=== PATIENT | female | born 1950 | race Caucasian/White ===

== ENCOUNTER 2022-11-25 07:52 | Day surgery (SDC) | payer MEDICARE, BC ==
[2022-11-25] VITALS (10 sets, daily range): BP systolic 97–147; BP diastolic 43–66; PULSE 65–80; RESP 12–20; TEMP 97.4; O2SAT 95–100
[~2022-11-25] VITALS: Ht 162.6 cm; Wt 81.9 kg
[~2022-11-25 07:52] MED LIST: CARV-50 PO; CEPH-585 PO; CYCL-1 PO; DULA1.5P SQ; DULO-31 PO; GABA-532 PO; HYDR-3972 PO; HYDR12.55 PO; LEVO88TA2 PO; PILO5TAB10 PO
[2022-11-25] MEDS ORDERED: LOSA50TA64 PO (08:28)
[2022-11-25] MEDS ORDERED: ROSU5TAB12 PO (08:28)
[2022-11-25] MEDS ORDERED: ZOLP5TAB8 PO (08:31)
[2022-11-25] MEDS ORDERED: normal saline 1,000 ML IV SCH (09:00)
[2022-11-25] MEDS ORDERED: diphenhydrAMINE 25mg capsule PO PRN (09:00)
[2022-11-25] MEDS ORDERED: sodium bicarbonate 1meq/ml syr 150 ML in dextrose 5%-water 1,000 ML IV SCH (09:10)
[2022-11-25 09:14] LABS: BASOPHILS % (AUTO) 0.3 % (0-1); EOSINOPHILS # (AUTO) 0.2 X10'3 (0-0.9); EOSINOPHILS % (AUTO) 3.4 % (0-6); HEMOGLOBIN 13.2 g/dl (12.0-16.0); LYMPHOCYTES # (AUTO) 2.1 X10'3 (1.1-4.8); LYMPHOCYTES % (AUTO) 41.8 % (21-51); MEAN CORPUSCULAR HEMOGLOBIN 33.5 PG (27.0-31.0); MEAN CORPUSCULAR HGB CONC 34.8 g/dL (33.0-36.5); MEAN CORPUSCULAR VOLUME 96.4 FL (78-98); MEAN PLATELET VOLUME 8.4 FL (7.4-10.4); MONOCYTES # (AUTO) 0.5 X10'3 (0-0.9); MONOCYTES % (AUTO) 9.1 % (2-12); NEUTROPHILS # (AUTO) 2.3 X10'3 (1.8-7.7); NEUTROPHILS % (AUTO) 45.4 % (42-75); PLATELET COUNT 158 X10'3 (140-440); RED BLOOD COUNT 3.94 X10'6 (4.20-5.60); RED CELL DISTRIBUTION WIDTH 12.7 % (11.5-14.5); WHITE BLOOD COUNT 5.1 X10'3 (4.5-11.0)
[2022-11-25 09:25] LABS: INR 1.1 INR; PROTHROMBIN TIME 11.6 SECONDS (9.0-12.0)
[2022-11-25 09:26] LABS: ALBUMIN 3.6 G/DL (3.4-5.0); ANION GAP 9 (8-16); BLOOD UREA NITROGEN 29 MG/DL (7-18); CALCIUM 9.5 MG/DL (8.5-10.1); CHLORIDE 104 MMOL/L (99-107); CREATININE 1.21 MG/DL (0.40-0.90); GLUCOSE 131 MG/DL (70-104); MAGNESIUM 1.9 MG/DL (1.5-2.4); POTASSIUM 3.7 MMOL/L (3.5-5.1); SODIUM 140 MMOL/L (135-145); TOTAL CARBON DIOXIDE 26.9 MMOL/L (24-32); eCRCL 35 ML/MIN; eGFR 43 ML/MIN
[2022-11-25] MEDS ORDERED: LIDOcaine 1% (10mg/ml) 2ml vial ONE (10:45)
[2022-11-25] MEDS ORDERED: nitroGLYCERIN-Tridil 50MG/D5W 250 ML IV ONE (10:45)
[2022-11-25] MEDS ORDERED: midazolam 1 mg/ML 2ml injection ONE ×3 (10:45→11:29)
[2022-11-25] MEDS ORDERED: verapamil 2.5 mg/ml inj IV ONE (10:45)
[2022-11-25] MEDS ORDERED: heparin 1,000unit/ml 10ml vial 10 ML ONE (10:46)
[2022-11-25] MEDS ORDERED: iohexol 350MG/ML 100ml bottle IV ONE (10:46)
[2022-11-25] MEDS ORDERED: fentaNYL/PF 50MCG/1 ML 2ML syringe ONE (10:46)
[2022-11-25] MEDS ORDERED: iohexol 350 MG/ML 50ML vial IV ONE (10:51)
[2022-11-25] MEDS ORDERED: proCHLORperazine 10 MG/2 ml inj ONE (11:18)
[2022-11-25] MEDS ORDERED: diphenhydrAMINE 50 mg/ml inj ONE (11:29)
[2022-11-25] MEDS ORDERED: normal saline 1000ml 1,000 ML IV SCH (12:15)
[2022-11-25] MEDS ORDERED: HYDROcodone/acetaminophen 5mg/325mg tablet PO PRN (12:15)
[2022-11-25] MEDS ORDERED: proCHLORperazine 10 MG/2 ml inj IV PRN (12:15)
[2022-11-25] MEDS ORDERED: HYDROcodone/acetaminophen 10/325mg tab PO PRN (12:15)
[2022-11-25] MEDS ORDERED: ondansetron/PF 4mg/2ml inj IV PRN (12:15)
== END 2022-11-25 15:30 | disposition home or self-care (01) ==
LOC: SSTAY O 07:52
PROVIDERS: ATTEND Internal Medicine Cardiovascular Disease
DX: I42.0 Dilated cardiomyopathy (principal); I25.10 Atherosclerotic heart disease of native coronary artery without angina pectoris; I47.20 Ventricular tachycardia, unspecified; E03.9 Hypothyroidism, unspecified; I10 Essential (primary) hypertension; E78.5 Hyperlipidemia, unspecified; J44.9 Chronic obstructive pulmonary disease, unspecified; E11.9 Type 2 diabetes mellitus without complications; M35.00 Sjogren syndrome, unspecified; Z79.899 Other long term (current) drug therapy; Z90.710 Acquired absence of both cervix and uterus; Z98.890 Other specified postprocedural states; Z88.8 Allergy status to other drugs, medicaments and biological substances; Z82.49 Family history of ischemic heart disease and other diseases of the circulatory system
CPT/HCPCS: 36415; 80048; 83735; 85025; 85610; 93005; 93458; 99152; A6258; J0780; J1644; J2250; J3010; J3490; J7030; Q0163; Q9967; 99153; A6402; C1894; J1200

== ENCOUNTER 2024-04-11 05:50 | Day surgery (SDC) | payer MEDICARE, BC ==
[2024-04-08 15:27] LABS: BASOPHILS % (AUTO) 0.4 % (0-1); EOSINOPHILS # (AUTO) 0.2 X10'3 (0-0.9); EOSINOPHILS % (AUTO) 3.6 % (0-6); LYMPHOCYTES # (AUTO) 2.2 X10'3 (1.1-4.8); LYMPHOCYTES % (AUTO) 45.9 % (21-51); MEAN CORPUSCULAR HEMOGLOBIN 33.8 PG (27.0-31.0); MEAN CORPUSCULAR HGB CONC 34.5 g/dL (33.0-36.5); MEAN CORPUSCULAR VOLUME 97.9 FL (78-98); MEAN PLATELET VOLUME 8.1 FL (7.4-10.4); MONOCYTES # (AUTO) 0.4 X10'3 (0-0.9); MONOCYTES % (AUTO) 8.3 % (2-12); NEUTROPHILS % (AUTO) 41.8 % (42-75); PRE OP HEMATOCRIT 35.4 % (35.0-45.0); PRE OP HEMOGLOBIN 12.2 g/dL (12.0-16.0); PRE OP PLATELET COUNT 165 X10'3 (140-440); PRE OP WHITE BLOOD COUNT 4.9 10'3 (4.8-10.8); RED BLOOD COUNT 3.62 X10'6 (4.20-5.60); RED CELL DISTRIBUTION WIDTH 12.4 % (11.5-14.5)
[2024-04-08 15:31] LABS: BILIRUBIN,URINE NEGATIVE (Neg); CLARITY,URINE SLIGHTLY CLOUDY (Clear); COLOR,URINE YELLOW (Yellow); GLUCOSE, URINE NEGATIVE (Neg); KETONES,URINE NEGATIVE (Neg); LEUKOCYTE ESTERASE ,URINE NEGATIVE (Neg); NITRITES, URINE NEGATIVE (Neg); OCCULT BLOOD,URINE NEGATIVE (Neg); PROTEIN,URINE NEGATIVE (Neg)
[2024-04-08 15:36] LABS: UA COLLECTION TYPE NON-SPECIFIED
[2024-04-08 15:44] LABS: BACTERIA,URINE FEW /HPF (Neg); MUCUS STRANDS NONE SEEN /LPF (Neg); RBC,URINE 0-2 /HPF (0-2); RENAL CELLS, URINE FEW /HPF; SQUAMOUS EPITHELIAL CELL,UR MANY /LPF (FEW); TRANSITIONAL EPI CELLS,URINE FEW /HPF; WBC,URINE 0-4 /HPF (0-4)
[2024-04-08 15:48] LABS: ALBUMIN 3.5 G/DL (3.4-5.0); ALBUMIN/GLOBULIN RATIO 1.1 (1.1-1.5); ALKALINE PHOSPHATASE 83 IU/L (46-116); BLOOD UREA NITROGEN 28 MG/DL (7-18); BUN/CREATININE RATIO 23.1 (10.0-20.0); CALCIUM 9.2 MG/DL (8.5-10.1); CHLORIDE 106 MMOL/L (99-107); CREATININE 1.21 MG/DL (0.40-0.90); PRE OP ALT 18 U/L (30-65); PRE OP ANION GAP 8 (8-16); PRE OP AST 11 U/L (10-37); PRE OP BILIRUB, TOTAL 0.5 MG/DL (0.0-1.0); PRE OP GLUCOSE 65 MG/DL (70-104); PRE OP POTASSIUM 3.9 MMOL/L (3.4-5.1); PRE OP SODIUM 143 MMOL/L (135-145); TOTAL CARBON DIOXIDE 29.3 MMOL/L (24-32); TOTAL PROTEIN 6.6 G/DL (6.4-8.2); eGFR 43 ML/MIN
[~2024-04-11] VITALS: Ht 162.6 cm; Wt 75.0 kg
[2024-04-11] VITALS (7 sets, daily range): BP systolic 127–146; BP diastolic 52–86; PULSE 71–85; RESP 12–16; TEMP 96.5; O2SAT 96–100
[2024-04-11] MEDS: DOCUMENT DATE & TIME OF BETA-BLOCKER PO ONE (05:30)
[2024-04-11] MEDS: ceFAZolin 2gm in dextrose, iso 50 ML IV ONE (05:30)
[~2024-04-11 05:50] MED LIST changes: -CEPH-585 PO; -CYCL-1 PO; -HYDR-3972 PO; +HYDR-3973 PO; +LANS15CA18 PO; -PILO5TAB10 PO; +ROSU5TAB51 PO
[2024-04-11] MEDS: famotidine 20mg tablet PO ONE (06:39)
[2024-04-11] MEDS ORDERED: bacitracin 15gm ointment TP ONE (06:57)
[2024-04-11] MEDS: ringers solution, lacted 1,000 ML IV SCH (06:58)
[2024-04-11] MEDS ORDERED: sevoflurane 250ml liquid IH ONE (07:07)
[2024-04-11] MEDS ORDERED: midazolam 1 mg/ML 2ml injection ONE (07:17)
[2024-04-11] MEDS ORDERED: fentaNYL/PF 50MCG/1 ML 2ML syringe ONE (07:17)
[2024-04-11] MEDS ORDERED: ROPIVAcaine 0.5% (5mg/ml) 30ml vial ONE (07:18)
[2024-04-11] MEDS ORDERED: rocuronium 10mg/ml inj IV ONE (07:42)
[2024-04-11] MEDS ORDERED: BUPIVAcaine/PF 7.5mg/ml (0.75%) 10ml vial ONE ×2 (07:43)
[2024-04-11] MEDS ORDERED: propofol inj 20 ML IV ONE (07:43)
[2024-04-11] MEDS ORDERED: LIDOcaine 2% (20mg/ml) 5ml vial ONE (07:43)
[2024-04-11] MEDS ORDERED: enalaprilat dihydrate 2.5mg/2ml vial IV PRN (08:20)
[2024-04-11] MEDS ORDERED: proCHLORperazine 10 MG/2 ml inj IV PRN (08:20)
[2024-04-11] MEDS ORDERED: ringers solution, lacted 1,000 ML IV SCH (08:20)
[2024-04-11] MEDS ORDERED: ondansetron/PF 4mg/2ml inj IV PRN (08:20)
[2024-04-11] MEDS ORDERED: labetalol 20mg/4ml (5mg/ml) syringe IV PRN (08:20)
[2024-04-11] MEDS ORDERED: meperidine/PF 25mg/ml syringe IV PRN ×3 (08:20)
[2024-04-11] MEDS ORDERED: morphine 2 MG/ML inj. syringe IV PRN (08:20)
[2024-04-11] MEDS ORDERED: morphine 4 MG/ML inj SYRINge IV PRN (08:20)
[2024-04-11] MEDS ORDERED: ondansetron/PF 4mg/2ml inj ONE (09:38)
== END 2024-04-11 10:48 | disposition home or self-care (01) ==
LOC: PAS 05:50
PROVIDERS: ATTEND Podiatrist Foot & Ankle Surgery
DX: M19.072 Primary osteoarthritis, left ankle and foot (principal); T84.84XA Pain due to internal orthopedic prosthetic devices, implants and grafts, initial encounter; M76.62 Achilles tendinitis, left leg; M92.62 Juvenile osteochondrosis of tarsus, left ankle; M25.472 Effusion, left ankle; M92.61 Juvenile osteochondrosis of tarsus, right ankle; I11.0 Hypertensive heart disease with heart failure; I50.9 Heart failure, unspecified; I42.9 Cardiomyopathy, unspecified; M35.00 Sjogren syndrome, unspecified; I48.91 Unspecified atrial fibrillation; Z79.899 Other long term (current) drug therapy; G89.18 Other acute postprocedural pain; Z90.710 Acquired absence of both cervix and uterus; Z98.890 Other specified postprocedural states
CPT/HCPCS: 20680; 27654; 28120; 29897; 36415; 64445; 64447; 73600; 80053; 81001; 82948; 85025; A4215; A4618; A6222; A6253; A6402; A6449; A7000; C1713; J0690; J1100; J2003; J2250; J2405; J2704; J2795; J3010; J3490; J7030; J7120; Z7506; Z7508; Z7512; Z7610; 76000

== ENCOUNTER 2024-12-13 10:55 | Outpatient (CLI) | payer MEDICARE, BC ==
--- NOTE | 2024-12-15 22:39 | CONSULTATION ---
DATE OF CONSULTATION: 12/13/2024 DICTATING PHYSICIAN: Marlen Turk M.S., [facility]BONDERIZER OPERATOR MODIFIED BARIUM SWALLOW STUDY REPORT REFERRING PHYSICIAN: Khloe Stevenson MD HISTORY OF PRESENT ILLNESS: The patient is a 74-year-old female and consents to this evaluation. In history obtained from the patient and medical records, the patient reports symptoms of dysphagia including difficulty with swallowing several different types of food items. She reports that she has to bring these food items back up after she has finished swallowing them, chew them and then try to re-swallow the item in order for it to go down through her esophagus. The patient reports a history of endoscopy with esophageal dilation for slight narrowing. She reports that the dilation has occurred at least 2 times and it has been at least 25 years since her last dilation. She reports a 30-pound weight loss in the last few years. She notes that this happens very frequently. The patient also reports medical history of a pacemaker and heart failure in 2009. The patient also notes that she has a family history of this difficulty with her mom, also having trouble with symptoms of dysphagia in her daughter as well. CURRENT DIET: In terms of caffeine, the patient has half a cup of coffee a day. She does not utilize tobacco products or drink alcohol. She may have chocolate in the form of a candy bar in spurts, so she may have one on a daily basis for a few weeks and then may not have one for several weeks. In terms of dairy products, the patient will very rarely have ice-cream or will have yogurt for breakfast. A typical breakfast consists of yogurt. She has a late lunch of sandwich or taquitos. The patient reports she does not always have dinner but if she does, it is spaghetti, meatloaf or potatoes, and then she snacks on crackers or cookies until about 10:00 p.m. and goes to bed at midnight. MEDICATIONS: Duloxetine 30 mg 3 times daily orally, Neurontin 300 mg 3 times daily orally, Coreg 12.5 mg 2 times daily orally, Salagen 5 mg 2-3 times daily orally, Synthroid 0.88 mg once daily orally, Protonix 40 mg once daily orally, Crestor 5 mg once daily orally, Entresto 12 mg twice daily, Microzide 12.5 mg 3 times weekly, Lortab 10/325 mg twice daily orally. PARAMETERS: The patient is seated in a lateral 90-degree view and administered the usual protocol of thin and nectar-thick liquids, puree and solid consistencies, as well as self-regulated boluses of thin liquids from the cup. RESULTS: The patient was easily able to transfer the bolus from the anterior to posterior oral cavity. The patient did utilize a lingual rocking motion to propel the bolus from the anterior to posterior oral cavity for self-regulated boluses of thin liquids, but this was the exception. There was no oral residue noted after the tail of the bolus was passed. In the pharyngeal stage of the swallow, tongue base retraction was within functional limits. Swallow initiation was within functional limits. Anterior movement of the posterior pharyngeal wall was observed. Elevation of the hyothyroid complex was accomplished with mildly reduced epiglottic inversion and the anterior and superior movement of the hyoid. There was a moderate amount of pharyngeal residue mostly above the UES with a mild amount of residue above the vallecula. The patient demonstrated penetration on the 5 mL thin liquid bolus not on the initial swallow, but on the residue following the initial swallow and she was noted to aspirate with independent clearance on the 3 mL thin liquid, again not on the first swallow but on the residue that was in the pharyngeal cavity. The patient was noted to require multiple swallows in order to clear the boluses from the pharyngeal cavity through the UES opening and it was also noted that for the puree and solid consistency that it would still reside below the level of the UES once the next frame had started. ANTERIOR-POSTERIOR VIEW: In the AP plane, the bolus splits symmetrically between the piriform sinuses. There was a slight delay where the bolus would stop at the level of the mid sternum and then continue to transit through the esophagus in a timely manner after that slight pause. IMPRESSION: The patient demonstrates what appears to be a moderate pharyngoesophageal stage swallowing disorder characterized by decreased UES opening and slowed propulsion of the bolus through the esophagus in the upper portion of the esophagus. DIAGNOSES: R13.14, dysphagia, pharyngoesophageal phase; K21.9, gastroesophageal reflux disease. PATIENT EDUCATION: Immediately following modified barium swallow study, the patient was able to see the results. The patient was able to see how the current status of the swallowing mechanism decreases her ability to swallow normally. She was educated on recommendation for referral to GI. RECOMMENDATIONS: It is recommended that the patient be referred for a GI consult for an upper endoscopy for a potential esophageal dilation. LONG-TERM GOALS: The patient will maintain adequate hydration/nutrition with optimum safety and efficiency of swallow function on p.o. intake without overt signs and symptoms of aspiration for the highest possible diet level. FUNCTIONAL ORAL INTAKE: The FOIS was administered to establish and document a change in the functional eating activities of this patient over time. This is a 7-point scale with 1 indicating no oral intake and totally tube-dependent and 7 indicating total oral intake with no restrictions. This patient receives a 6, which indicates she has a total oral diet with multiple consistencies without special preparation, but with specific food limitations and precautions. G-CODE: [id number]. Thank you very much for asking me to participate in the care of this kind patient. If you have any questions regarding this evaluation or recommendations, please do not hesitate to contact me at [phone]. During this examination 4:25 minutes of fluoroscopy time and 24.57 CAK mGy were utilized. Marlen Turk M.S., [employer]ER OPERATOR TID: [id number] RECEIPT: [id number] LORENZO MARQUES
== END 2024-12-13 23:59 | disposition home or self-care (01) ==
LOC: RAD 10:55
PROVIDERS: ATTEND Internal Medicine Rheumatology
DX: K21.9 Gastro-esophageal reflux disease without esophagitis (principal); R13.14 Dysphagia, pharyngoesophageal phase
CPT/HCPCS: 74230